=== PATIENT | male | born 1955 | race Caucasian/White ===

== ENCOUNTER 2023-10-07 14:45 | Outpatient (RCR) | payer BC, SELFPAY | END 2024-02-04 23:59 | disposition home or self-care (01) | PROVIDERS: PCP Family Medicine; Visit Provider Orthopaedic Surgery Orthopaedic Surgery of the Spine | DX: M54.2 Cervicalgia (principal); M13.88 Other specified arthritis, other site; Z51.89 Encounter for other specified aftercare | CPT/HCPCS: 97110; 97140; 97162 ==